=== PATIENT | male | born 1965 | race American Indian/Alaskan Native ===

== ENCOUNTER 2018-04-13 23:08 | Emergency (ER) | payer OTHER ==
[2018-04-14 00:19] VITALS: BP 186/80
[2018-04-14] MEDS ORDERED: TYLENOL ONE (00:26)
[2018-04-14] MEDS ORDERED: TYLENOL PO ONE (00:39)
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
[2018-04-14] MEDS ORDERED: MOTRIN PO ONE ×2 (02:28→02:34)
[2018-04-14] MEDS ORDERED: FLEXERIL PO ONE (02:28)
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
== END 2018-04-14 02:48 | disposition home or self-care (01) ==
LOC: ED 23:08
DX: S16.1XXA Strain of muscle, fascia and tendon at neck level, initial encounter (principal); S20.212A Contusion of left front wall of thorax, initial encounter; I10 Essential (primary) hypertension; F17.200 Nicotine dependence, unspecified, uncomplicated; F12.10 Cannabis abuse, uncomplicated; Y08.89XA Assault by other specified means, initial encounter; Y93.89 Activity, other specified; Y92.89 Other specified places as the place of occurrence of the external cause; Y99.8 Other external cause status
CPT/HCPCS: 71111; 72040